=== PATIENT | female | born 1975 | race Caucasian/White ===

== ENCOUNTER 2018-02-14 19:25 | Emergency (ER) | payer SELFPAY ==
[~2018-02-14] VITALS: Ht 157.5 cm; Wt 80.7 kg
[2018-02-14 19:32] VITALS: Ht 157.5 cm; Wt 80.7 kg
[2018-02-14 21:10] VITALS: BP 113/75
== END 2018-02-14 21:10 | disposition home or self-care (01) ==
LOC: ED 19:25
DX: S16.1XXA Strain of muscle, fascia and tendon at neck level, initial encounter (principal); R51 Headache; V49.9XXA Car occupant (driver) (passenger) injured in unspecified traffic accident, initial encounter; Y93.I9 Activity, other involving external motion; Y92.488 Other paved roadways as the place of occurrence of the external cause; Y99.8 Other external cause status
CPT/HCPCS: Q0162